=== PATIENT | female | born 1990 | race Caucasian/White ===

== ENCOUNTER 2020-12-06 07:17 | Emergency (ER) | payer MEDICAID, OTHER ==
[~2020-12-06] VITALS: Ht 180.3 cm; Wt 91.2 kg
[2020-12-06 07:23] VITALS: BP 117/74
[2020-12-06] MEDS ORDERED: KETOROLAC TROMETH 60MG/2ML VIAL IM ONE (08:00)
[2020-12-06] MEDS ORDERED: IBUPROFEN 800 MG TAB PO ONE (08:00)
== END 2020-12-06 09:07 | disposition home or self-care (01) ==
LOC: ER 07:17 → EDBD 07:17 → ER 09:00
DX: S46.912A Strain of unspecified muscle, fascia and tendon at shoulder and upper arm level, left arm, initial encounter (principal); J45.909 Unspecified asthma, uncomplicated; V43.52XA Car driver injured in collision with other type car in traffic accident, initial encounter; Y93.89 Activity, other specified; Y92.488 Other paved roadways as the place of occurrence of the external cause; Y99.8 Other external cause status
CPT/HCPCS: 72040; 72070; 73030

== ENCOUNTER 2023-07-07 23:52 | Emergency (ER) | payer MEDICAID, OTHER ==
[~2023-07-07] VITALS: Ht 177.8 cm; Wt 112.0 kg
[2023-07-07 23:52] VITALS: BP 132/69; PULSE 70; RESP 18; TEMP 97.9
[2023-07-08] MEDS ORDERED: FAMOTIDINE 20 MG TAB PO ONE (00:45)
[2023-07-08] MEDS ORDERED: diphenhdrAMINE HCL 50 MG/1 ML VL IM ONE (00:45)
[2023-07-08] MEDS ORDERED: DexAMETHasone SOD PHOS 10MG/1ML VIAL INJ IM ONE (00:45)
[2023-07-08] MEDS ORDERED: FAMO20TA10 PO (01:33)
[2023-07-08] MEDS ORDERED: DIPH25CA66 PO (01:33)
[2023-07-08] MEDS ORDERED: PRED20TA2 PO (01:33)
[2023-07-08 02:04] VITALS: O2SAT 97
== END 2023-07-08 02:30 | disposition home or self-care (01) ==
LOC: ER 23:52
DX: T78.40XA Allergy, unspecified, initial encounter (principal); J45.909 Unspecified asthma, uncomplicated; G43.909 Migraine, unspecified, not intractable, without status migrainosus; Z79.899 Other long term (current) drug therapy; Z88.0 Allergy status to penicillin; Y92.89 Other specified places as the place of occurrence of the external cause
CPT/HCPCS: 96372; 99284; J1100; J1200

== ENCOUNTER 2023-12-15 08:13 | Emergency (ER) | payer MEDICAID ==
[~2023-12-15] VITALS: Ht 177.8 cm; Wt 106.8 kg
[~2023-12-15 08:13] MED LIST: DIPH25CA66 PO; FAMO20TA10 PO; PRED20TA2 PO
[2023-12-15 09:01] VITALS: BP 126/51; PULSE 68; RESP 22; TEMP 98.6; O2SAT 97
[2023-12-15] MEDS: DexAMETHasone SOD PHOS 10MG/1ML VIAL INJ IM ONE (09:16)
[2023-12-15] MEDS: ALBUTEROL SULF 2.5 MG/0.5ML(0.5%) NEB SOLN NEB ONE (09:25)
[2023-12-15] MEDS: IPRATROPIUM BROM 0.5 MG/2.5ML INH SOL NEB ONE (09:25)
== END 2023-12-15 09:46 | disposition home or self-care (01) ==
LOC: ER 08:13
DX: J45.901 Unspecified asthma with (acute) exacerbation (principal)
CPT/HCPCS: 71046; 94640; 96372; 99283; J1100; J7644

== ENCOUNTER 2024-06-02 11:38 | Emergency (ER) | payer MEDICAID ==
[~2024-06-02] VITALS: Ht 177.8 cm; Wt 106.1 kg
[2024-06-02 12:49] VITALS: BP 132/74; PULSE 68; TEMP 98.9
[2024-06-02] MEDS: methylPREDNISolone SOD SUCC 125 MG/2 ML VL IM ONE (13:12)
[2024-06-02 13:44] VITALS: RESP 18; O2SAT 98
[2024-06-02] MEDS: IPRATROPIUM BROM 0.5 MG/2.5ML INH SOL NEB ONE (13:44)
[2024-06-02] MEDS: ALBUTEROL SULF 2.5 MG/0.5ML(0.5%) NEB SOLN NEB ONE (13:44)
[2024-06-02] MEDS ORDERED: ALB5IS NEB (14:00)
[2024-06-02] MEDS ORDERED: PRED20TA2 PO (14:00)
[2024-06-02] MEDS ORDERED: IBUP-1456 PO (14:00)
== END 2024-06-02 14:10 | disposition home or self-care (01) ==
LOC: ER 11:38
DX: J45.31 Mild persistent asthma with (acute) exacerbation (principal)
CPT/HCPCS: 71045; 94640; 96372; 99283; J2919

== ENCOUNTER 2025-02-05 06:26 | Emergency (ER) | payer MEDICAID ==
[~2025-02-05] VITALS: Ht 177.8 cm; Wt 102.6 kg
[~2025-02-05 06:26] MED LIST changes: +ALB5IS NEB; +IBUP-1456 PO
[2025-02-05] MEDS: IPRATROPIUM BROM 0.5 MG/2.5ML INH SOL NEB ONE (07:22)
[2025-02-05] MEDS: ALBUTEROL SULF 2.5 MG/0.5ML(0.5%) NEB SOLN NEB ONE (07:22)
--- NOTE | 2025-02-05 07:27 | DVH ---
EXAM: XR Chest, 1 View CLINICAL INDICATION: Pain TECHNIQUE: Frontal view of the chest. COMPARISON: No relevant prior studies available. FINDINGS: LUNGS AND PLEURAL SPACES: Unremarkable. No consolidation. No pneumothorax. HEART: Unremarkable. No cardiomegaly. MEDIASTINUM: Unremarkable. Normal mediastinal contour. BONES/JOINTS: Unremarkable. No acute fracture. IMPRESSION: No acute cardiopulmonary process.
--- NOTE | 2025-02-05 07:27 | ED.PDOC ---
History of Present Illness HPI Comments 34-year-old female presents to the ER with the prior medical history of asthma; surgical history of x2, tubal ligation and the chief complaint of shortness a breath. Patient reports on having an allergic reaction of 02/03/2025 for which worsened in the patient's asthma. The patient states on shortness a breath worsening last night with wheezing. Patient notes on having upper left-sided back pain. Social history of tobacco and alcohol use. Denies chills, fever, N/V/D, CP. No other associated symptoms, modifiers, recent injuries or sick contacts present at this time. Chief Complaint: Shortness of Breath Time Seen by MD: 07:00 Primary Care Provider: CANDY Arvizu Notes: Nurses Notes, Medications, Allergies Allergies: Coded Allergies: Penicillins (Verified Allergy, Unknown, 12/06/20) Home Meds Active Scripts Ibuprofen (Ibuprofen) 800 Mg Tab, 1 TAB PO TID, #20 TAB Prov:MATTIE VARGAS 06/02/24 Albuterol Sulfate (Ventolin) 2.5 Mg/0.5 Ml Nb, 1 VIAL NEB Q4HR, #60 VIAL Prov:MATTIE VARGAS 06/02/24 Prednisone (Prednisone) 20 Mg Tab, 60 MG PO DAILY, #15 TAB Prov:MATTIE VARGAS 06/02/24 Famotidine (PEPCID TABLET) 20 Mg Tb, 1 TAB PO BID for 10 Days, #20 TAB Prov:JAQUELINE PEREZ SUPERVISOR [employer] 07/08/23 Prednisone (Prednisone) 20 Mg Tab, 1 TAB PO DAILY for 5 Days, #5 TAB start tomorrow with food Prov:JAQUELINE PEREZ SUPERVISOR [employer] 07/08/23 Diphenhydramine Hcl (Benadryl Allergy) 25 Mg Cap, 1 CAP PO Q8HPRN PRN, #30 CAP 1 Refill as needed for allergy sx Prov:JAQUELINE PEREZ SUPERVISOR [employer] 07/08/23 Information Source: Patient Mode of Arrival: Ambulatory Severity: Moderate Timing: Days Duration: Since onset, Days Prehospital treatment: None Past Medical History PAST MEDICAL HISTORY: Asthma Surgical History: , Tubal Ligation INVESTMENT BANKING ASSOCIATE History: Denies all INVESTMENT BANKING ASSOCIATE Hx Family History Family History: Reviewed,noncontributory to illness, Unknown Social History Smoker: Non-Smoker Alcohol: Denies ETOH Use Drugs: Denies Drug Use Lives In: Home Constitutional: denies: chills, diaphoresis, fatigue, fever, malaise, sweats, weakness, others EENTM: denies: blurred vision, double vision, ear bleeding, ear discharge, ear drainage, ear pain, ear ringing, eye pain, eye redness, hearing loss, mouth pain, mouth swelling, nasal discharge, nose bleeding, nose congestion, nose pain, photophobia, tearing, throat pain, throat swelling, voice changes, others Respiratory: reports: shortness of breath; denies: cough, hemoptysis, orthopnea, SOB at rest, SOB with excertion, stridor, wheezing, others Cardiovascular: denies: chest pain, dizzy spells, diaphoresis, Dyspnea on exertion, edema, irregular heart beat, left arm pain, lightheadedness, palpitations, PND, syncope, others Gastrointestinal: denies: abdomen distended, abdominal pain, blood streaked bowels, constipated, diarrhea, dysphagia, difficulty swallowing, hematemesis, melena, nausea, poor appetite, poor fluid intake, rectal bleeding, rectal pain, vomiting, others Genitourinary: denies: abnormal vagina bleeding, burning, dyspareunia, dysuria, flank pain, frequency, hematuria, incontinence, pain, , vagina discharge, urgency, others Neurological: denies: dizziness, fainting, headache, left sided numbness, left sided weakness, numbness, paresthesia, pre-existing deficit, right sided numbness, right sided weakness, seizure, speech problems, tingling, tremors, weakness, others Musculoskeletal: reports: back pain; denies: gout, joint pain, joint swelling, muscle pain, muscle stiffness, neck pain, others Integumetry: denies: bruises, change in color, change in hair/nails, dryness, laceration, lesions, lumps, rash, wounds, others Allergic/Immunocompromised: denies: Difficulty Healing, Frequent Infections, Hives, Itching, others Hematologic/Lymphatic: denies: anemia, blood clots, easy bleeding, easy bruising, swollen glands, others Endocrine: denies: excessive hunger, excessive sweating, excessive thirst, excessive urination, flushing, intolerance to cold, intolerance to heat, unexplained weight gain, unexplained weight loss, others Psychiatric: denies: anxiety, bipolar disorder, depression, hopeless, panic disorder, schizophrenia, sleepless, suicidal, others All Other Systems: Reviewed and Negative Physical Exam General Appearance: Moderate Distress, Normal HEENT: Normal ENT Inspection, Pharynx Normal, TMs Normal Neck: Full Range of Motion, Non-Tender, Normal, Normal Inspection Respiratory: Chest Non-Tender, No Accessory Muscle Use, No Respiratory Distress, Wheezing Cardiovascular: No Edema, No JVD, No Murmur, No Gallop, Normal Peripheral Pulses, Regular Rate/Rhythm Breast Exam: Deferred Gastrointestinal: No Organomegaly, Non Tender, No Pulsatile Mass, Normal Bowel Sounds, Soft Genitalia: Deferred Pelvic: Deferred Rectal: Deferred Extremities: No calf tenderness, Normal capillary refill, Normal inspection, Normal range of motion, Non-tender, No pedal edema Musculoskeletal : Apperance: Normal Neurologic: Alert, foster care therapist II-XII nml as Tested, No Motor Deficits, Normal Affect, Normal Mood, No Sensory Deficits Cerebellar Function: Normal Reflexes: Normal Skin: Dry, Normal Color, Warm Peripheral Pulses: 3+ Radial (R), 3+ Radial (L) Lymphatic: No Adenopathy Was a procedure done? Was a procedure done?: No Differential Dx Considerations may include: Pneumonitis Asthma exacerbation X-Ray, Labs, Meds, VS Vital Signs Date Time Temp Pulse Resp B/P (MAP) Pulse Ox O2 Delivery O2 Flow Rate FiO2 02/05/25 07:34 74 18 97 Room Air 02/05/25 07:34 98.1 74 18 134/61 (85) 97 98.1 02/05/25 07:22 18 98 Room Air* 0 21 02/05/25 06:35 98.4 98 16 148/82 (104) 100 98.4 Current Medications Medications (Trade) Dose Ordered Sig/[place] Route Start Time Stop Time Status Last Admin Albuterol (Ventolin Medneb) 5 mg ONCE ONCE NEB 02/05/25 07:00 02/05/25 07:02 DC 02/05/25 07:22 Ipratropium [place] (Atrovent Medneb) 0.5 mg ONCE ONCE NEB 02/05/25 07:00 02/05/25 07:02 DC 02/05/25 07:22 Patient alert. No sign of distress. Vitals stable. Answering all questions. Saturation pristine on room air. Heart rate within normal limits. Respiratory rate within normal limits. No leg swelling. Was given breathing treatment. Was given steroid. Possible pneumonitis. Chest x-ray does not show any acute process. Was given prescription of prednisone Levaquin antibiotic. Was told to follow up with her primary care physician. Was told to come back if there is any problem. Time of 1ST Reevaluation: 07:30 Reevaluation 1ST: Unchanged Patient Education/Counseling: Diagnosis, Treatment, Prognosis Family Education/Counseling: No Family Present SEPSIS Sepsis Screen Date sepsis recognized/suspect: Feb 05, 2025 Time Sepsis recognized/suspect: 634 Recent Procedure: No On Antibiotic Therapy: No Respiratory Rate >20: No Heart Rate >90: Yes Temp<36 C (96.8 F) or >38.3 C: No SBP <90 or MAP <65 mmHG: No New Acute Mental Status Change: No Is the patient on CPAP, BIPAP,: No Physician Orders Chest Portable (02/05/25 07:00) Urinalysis (02/05/25 07:00) Vital Signs Date Time Temp Pulse Resp B/P (MAP) Pulse Ox O2 Delivery O2 Flow Rate FiO2 02/05/25 07:34 74 18 97 Room Air 02/05/25 07:34 98.1 74 18 134/61 (85) 97 98.1 02/05/25 07:22 18 98 Room Air* 0 21 02/05/25 06:35 98.4 98 16 148/82 (104) 100 98.4 Medications Medications Dose Ordered Sig/[place] Route Start Time Stop Time Status Last Admin Dose Admin Albuterol 5 mg ONCE ONCE NEB 02/05/25 07:00 02/05/25 07:02 DC 02/05/25 07:22 Ipratropium [place] 0.5 mg ONCE ONCE NEB 02/05/25 07:00 02/05/25 07:02 DC 02/05/25 07:22 Departure 1 Departure Time of Disposition: 07:38 Impression: Primary Impression: Pneumonitis Additional Impression: Acute asthma exacerbation Qualified Codes: J45.41 - Moderate persistent asthma with (acute) exacerbation Disposition: 01 HOME / SELF CARE / HOMELESS Condition: Good e-Prescriptions Levofloxacin Hemihydrate (LEVOFLOXACIN) 500 Mg Tab 500 MG PO DAILY for 7 Days, #7 MG Prov: ДМИТРИЙ SYLVESTER MD 02/05/25 Prednisone (Prednisone) 10 Mg Tab 10 MG PO DAILY for 5 Days, #5 MG Prov: ДМИТРИЙ SYLVESTER MD 02/05/25 Discharged With: Self Critical Care Note Critical Care Time?: No Stability Stability form required: No Heart Score Heart Score: Heart Score Response (Comments) Value History N/A 0 EKG N/A 0 Age N/A 0 Risk Factors N/A 0 Troponin N/A 0 Total 0 I personally scribed for ДМИТРИЙ SYLVESTER MD ([email or web address]) on 02/05/25 at 07:27. Electronically submitted by Ibrahima Jaime ([email or web address]). ДМИТРИЙ SYLVESTER MD Feb 05, 2025 07:27
[2025-02-05] MEDS ORDERED: PRED10TA PO (07:39)
[2025-02-05] MEDS ORDERED: LEVO500T91 PO (07:39)
[2025-02-05] MEDS: methylPREDNISolone SOD SUCC 125 MG/2 ML VL IV ONE (07:41)
[2025-02-05 07:51] LABS: Urine Bacteria MANY /hpf (None Seen); Urine Blood Negative /uL (Negative); Urine Clarity Turbid (Clear); Urine Color Light-Yellow (Yellow); Urine Protein, UAD Negative (Negative); Urine Specific Gravity 1.008 (1.001-1.035); Urine Squamous Epithelial Cell FEW /hpf (<5); Urine Urobilinogen Normal (Negative); Urine WBC 8 /HPF (0-5); Urine pH 5.5 (5.0-9.0)
[2025-02-05 08:35] VITALS: BP 107/54; PULSE 67; RESP 16; TEMP 98.1; O2SAT 97
== END 2025-02-05 08:34 | disposition home or self-care (01) ==
LOC: ER 06:26
DX: J45.901 Unspecified asthma with (acute) exacerbation (principal); J98.4 Other disorders of lung; Z98.51 Tubal ligation status; Z88.0 Allergy status to penicillin
CPT/HCPCS: 71045; 81001; 94640; 96374; 99284; J2919

== ENCOUNTER 2025-03-30 11:31 | Emergency (ER) | payer MEDICAID ==
[~2025-03-30] VITALS: Ht 177.8 cm; Wt 104.7 kg
[~2025-03-30 11:31] MED LIST changes: +LEVO500T91 PO; +PRED10TA PO
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
[2025-03-30] MEDS: ACETAMINOPHEN 325 MG TAB PO ONE (12:27)
[2025-03-30] MEDS ORDERED: METH-1182 PO (12:49)
[2025-03-30 12:52] VITALS: BP 137/83; PULSE 90; RESP 18; TEMP 98.1; O2SAT 96
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
== END 2025-03-30 12:59 | disposition home or self-care (01) ==
LOC: ER 11:31
DX: S16.1XXA Strain of muscle, fascia and tendon at neck level, initial encounter (principal); S46.912A Strain of unspecified muscle, fascia and tendon at shoulder and upper arm level, left arm, initial encounter; Z79.899 Other long term (current) drug therapy; Z98.890 Other specified postprocedural states; Z98.51 Tubal ligation status; Z88.0 Allergy status to penicillin; Z79.52 Long term (current) use of systemic steroids; Z79.1 Long term (current) use of non-steroidal anti-inflammatories (NSAID); V49.40XA Driver injured in collision with unspecified motor vehicles in traffic accident, initial encounter; Y93.89 Activity, other specified; Y92.488 Other paved roadways as the place of occurrence of the external cause; Y99.8 Other external cause status
CPT/HCPCS: 72040; 73010